=== PATIENT | female | born 1955 | race Caucasian/White ===

== ENCOUNTER → 2020-04-02 | Day surgery (SDC) | payer MEDICARE ==
[~2020-04-02] MED LIST: ASA81BEC PO; CELEXA 20 MG TA20 MG PO; COQ1050 MG PO; CRANBERRY500 M3 PO; FENOFIBRATE160 MG PO; GLIPIZIDE 10 MG10 MG PO; GLUCOPHAGE1000 MG PO; LEVEMIR100 UNIT/1 SUBQ; LIPITOR40 MG PO; MOBIC15 MG PO; NEURONTIN600 MG PO; NOVOLOG100 UNIT/1 SUBQ; NYSTATIN 100,0015 G1 TOP; OMEPRAZOLE40 MG PO; PRINIVIL10 MG PO; SUPER THERAVIT1 EACH PO; TRAZODONE HCL100 MG PO; VITAMIN B-125000 MCG SUBLING; VITAMINC500 PO
[2020-04-02 07:51] LABS: HEMATOCRIT 38.2 % (37.0-47.0); HEMOGLOBIN 12.8 gm/dL (12.0-15.0); MCH 28.4 pg (26.0-34.0); MCHC 33.5 g/dL (28.0-37.0); MCV 84.9 fL (80.0-100.0); MPV 7.6 fl. (7.2-11.1); RBC 4.5 mil/uL (4.20-5.00); RDW-CV 13.3 % (10.5-14.5); WBC 5.5 thou/uL (4.0-11.0)
[2020-04-02 08:15] LABS: CALCIUM 8.8 mg/dL (8.5-10.1); CREATININE 0.9 mg/dL (0.6-1.3)
--- NOTE | 2020-04-02 15:41 | EKG ---
[place] [address] ELECTROCARDIOGRAM REPORT Name: KANE RAIN Room: [facility]#: [id number] Admission: 04/02/20 Attend Phys: Ricardo Barbosa Discharge: Date of : 59 Date of Service: 04/02/20 0800 Report #: [id number] THIS REPORT FOR: //name// [facility] Test Date: 2020-04-02 Test Time: 08:00:09 Pat Name: KANE RAIN Department: Room: Gender: Trials Manager: : 1955 Requested By: Ricardo Alvarez Order Number: [id number] Elieser MD: Khanh Alford Measurements Intervals [place] Rate: 82 P: 31 WV: 160 QRS: 8 QRSD: 88 T: 30 QT: 365 QTc: 427 Interpretive Statements Sinus rhythm Minimal ST elevation, anterior leads probably normal variant No previous ECG available for comparison Electronically Signed On 04-02-2020 15:41:25 CDT by Khanh Alford [email or web address] <ELECTRONICALLY SIGNED> By: Khanh Alford MD, [facility] 04/02/20 1541 9 9 Khanh Alford MD, [facility] /EPI
--- NOTE | 2020-04-05 11:07 | PATH ---
[address] [address] PATHOLOGY RPT PROCEDURE Name: KANE OSBORNE Room: [facility]#: [id number] Admission: 04/02/20 Date of : 59 Discharge: Report #: [id number] Path Case #: [id number] [facility] Accession Number: [id number] . 01 Material submitted: . clavicle - LEFT CLAVICLE MASS. Modifiers: left . 01 Clinical history: . Benign neotrunk . 02 Diagnosis: Left clavicle mass: - Consistent with lipoma and benign skeletal muscle and dermal tissues including sweat gland adnexae. (MARIO:cassidy; 04/04/2020) S 04/04/2020 1527 Local . 02 Electronically signed: . Bo Schwab MD, Pathologist NPI- [id number] . 01 Gross description: . The specimen is received in formalin, labeled "Osborne, Kane, left clavicle mass" and consists of 2 segments of yellow lobulated tissue measuring 1.3 x 1.0 x 0.7 cm and 4.5 x 1.8 x 1.4 cm. Sectioning reveals partially fibrotic cut surfaces and the specimen is entirely submitted in A1-A3. (SDY; 04/03/2020) SYU/SYU 04/03/2020 1112 Local . 02 Pathologist provided ICD-10: D17.79 . 02 CPT . 606236 Specimen Comment: A courtesy copy of this report has been sent to [phone], [phone] Specimen Comment: [phone] Specimen Comment: Report sent to / DR TAVARES Performed at: [address], [place], [place] [id number] MD Avila Martin MD Phone: [phone] Performed at: 02 [facility] [address], [place], [place] [id number] MD Bo Schwab MD Phone: [phone]
--- NOTE | 2020-04-12 13:14 | OP ---
[address] [address] OPERATIVE REPORT Name: KANE RAIN Room: [facility]#: [id number] Admission: 04/02/20 Attend Phys: Ricardo Alvarez Discharge: Date of : 59 Report #: [id number] THIS REPORT FOR: //name// cc: Scar Jennings Robin L. FNP THIS REPORT FOR: //name// CC: Ricardo Jennings DATE OF SERVICE: 04/02/2020 PREOPERATIVE DIAGNOSIS: Left clavicle benign mass, 3 cm. POSTOPERATIVE DIAGNOSIS: Left clavicle benign mass, 3 cm. OPERATION: Excision of left clavicle benign mass, 3 cm. SURGEON: Ricardo Alvarez MD ANESTHESIA: General. ESTIMATED BLOOD LOSS: Minimal. SPECIMEN: Left clavicle mass. DESCRIPTION OF PROCEDURE: After informed consent was obtained, the patient was brought to the operating room and placed supine. SCDs were placed and working, preoperative antibiotics were administered, general anesthesia was induced. The left chest was prepped and draped in the usual sterile fashion. The area was anesthetized with 5 mL of 0.5% Marcaine. A 3 cm incision was made over the medial left clavicle. Cautery dissection was made down through the subcutaneous tissue. Lipoma was encountered. Lipoma was excised using the cautery. This measured approximately 3 x 2 cm. The skin was closed in 2 layers with a single 3-0 Vicryl for the deep layer and 4-0 Monocryl in running subcuticular fashion for the skin. Incision was dressed with Steri-Strips and gauze. COMPLICATIONS: None. [facility] [address] [place] [address] OPERATIVE REPORT Name: KANE RAIN Room: [facility]#: [id number] Admission: 04/02/20 Attend Phys: Ricardo Alvarez Discharge: Date of : 59 Report #: [id number] DISPOSITION: The patient was taken to recovery in satisfactory condition. <ELECTRONICALLY SIGNED> By: Ricardo Alvarez MD 04/12/20 1314 1337 [id number] Alvarez MD /nt
== END | disposition home or self-care (01) ==
LOC: M.SUR 07:12
PROVIDERS: ATTEND Surgery
DX: D17.1 Benign lipomatous neoplasm of skin and subcutaneous tissue of trunk (principal); E11.9 Type 2 diabetes mellitus without complications; F41.9 Anxiety disorder, unspecified; Z98.890 Other specified postprocedural states; Z79.899 Other long term (current) drug therapy; Z11.59 Encounter for screening for other viral diseases; Z90.49 Acquired absence of other specified parts of digestive tract; Z90.710 Acquired absence of both cervix and uterus; Z96.653 Presence of artificial knee joint, bilateral; Z88.2 Allergy status to sulfonamides